=== PATIENT | male | born 1960 | race Hispanic/Latino ===

== ENCOUNTER 2021-06-03 01:01 | Emergency (ER) | payer MEDICARE ==
[~2021-06-03] VITALS: Ht 157.5 cm; Wt 49.9 kg
[2021-06-03 01:11] VITALS: BP 120/89
--- NOTE | 2021-06-03 01:19 | ER.PDOC ---
General Chief Complaint: General Complaint Stated Complaint: PEG TUBE REMOVED TRAVEL OUT OF US: No Time seen by MD: 01:02 Source: patient Exam Limitations: no limitations History of Present Illness Initial Comments This is a 60-year-old man who comes to the emergency department after he inadvertently pulled out his PEG tube. He was sent here by ambulance for to be replaced. Timing/Duration: 1 hour Severity: mild Associated Symptoms: denies symptoms Allergies: Coded Allergies: No Known Allergies (Unverified , 06/03/21) Past Medical History Medical History: CVA/TIA/stroke, GERD, high cholesterol Social History Alcohol Use: none Drug Use: none Review of Systems Constitutional: no symptoms reported EENTM: no symptoms reported Respiratory: no symptoms reported Cardiovascular: no symptoms reported Gastrointestinal: no symptoms reported Genitourinary: no symptoms reported Musculoskeletal: no symptoms reported Skin: no symptoms reported Psychiatric/Neurological: no symptoms reported Hematologic/Lymphatic: no symptoms reported Immunological/Allergic: no symptoms reported All Other Systems: Reviewed and Negative Physical Exam General Appearance: No Apparent Distress EENT: nml ENT inspection Neck: Normal Inspection Respiratory: lungs clear, normal breath sounds, no respiratory distress CVS: reg rate & rhythm, no murmur Gastrointestinal: Normal Bowel Sounds, No Organomegaly, Non Tender, Other (peg insertion site appears normal. No signs of irritation or infection) Back: Normal Inspection Extremities: Normal Inspection Neurologic/Psychiatric: No Motor/Sensory Deficits Skin: Normal Color NG Lavage Progress A #18F PEG tube placed back in the site without difficulty. Aspirated gastric contents Results/Orders Results/Orders Vital Signs Date Time Temp Pulse Resp B/P (MAP) Pulse Ox O2 Delivery O2 Flow Rate FiO2 06/03/21 01:11 98.4 77 16 120/89 (99) 93 Room Air 06/03/21 01:11 98.4 77 16 93 06/03/21 01:11 98.4 77 16 ER DEPART Departure Time of Disposition: 01:18 Disposition: [facility] Impression: Primary Impression: PEG tube malfunction Condition: Stable Patient Instructions: PEG, Home Care, Ictg-fn-Gatc Referrals: PCP,UNKNOWN (PCP) PRIMARY CARE PROVIDER Duration or Time Spent with Pa: AKIRA Anderson MD Jun 03, 2021 01:19
== END 2021-06-03 01:28 ==
LOC: ER 01:01 → EDBD 01:01 → ER 01:28
DX: K94.23 Gastrostomy malfunction (principal); K21.9 Gastro-esophageal reflux disease without esophagitis; E78.00 Pure hypercholesterolemia, unspecified; Z86.73 Personal history of transient ischemic attack (TIA), and cerebral infarction without residual deficits
CPT/HCPCS: 99285

== ENCOUNTER → 2021-06-20 | Outpatient (CLI) | payer MEDICARE ==
--- NOTE | 2021-06-20 18:44 | DIREP ---
PROCEDURE:XRAY SHOULDER MIN 2 VWS-RT COMPARISON:None. INDICATIONS:W19.XXXA FALL FINDINGS: BONES:Greater tuberosity subchondral cysts. JOINTS:Mild degenerative changes of the right glenohumeral and acromioclavicular joints. Subacromial space maintained. No evidence for dislocation. SOFT TISSUES:Normal. OTHER:Normal. CONCLUSION:No acute or significant chronic bony abnormality. Dictated by: Cindy Hopkins MD on 06/20/2021 at 06:41 PM
--- NOTE | 2021-06-20 18:49 | DIREP ---
PROCEDURE:XRAY WRIST MIN 3VW-RT COMPARISON:None. INDICATIONS:W19.XXXA FALL FINDINGS: BONES:Normal. JOINTS:Mild/moderate diffuse degenerative changes. SOFT TISSUES:Peripheral arterial calcifications. OTHER:No additional findings. CONCLUSION:No acute bony abnormality. Dictated by: Cindy Hopkins MD on 06/20/2021 at 06:46 PM
--- NOTE | 2021-06-20 18:51 | DIREP ---
PROCEDURE:XRAY FOREARM 2 VWS-RT COMPARISON:None. INDICATIONS:W19.XXXA FALL FINDINGS: BONES:Normal. JOINTS:No dislocation. Mild/moderate degenerative changes. SOFT TISSUES:Normal. OTHER:No additional findings. CONCLUSION:No acute bony abnormality. Dictated by: Cindy Hopkins MD on 06/20/2021 at 06:48 PM
== END | disposition home or self-care (01) ==
LOC: RAD 15:24
PROVIDERS: ATTEND Family Medicine
DX: R13.12 Dysphagia, oropharyngeal phase (principal); I63.9 Cerebral infarction, unspecified; W19.XXXA Unspecified fall, initial encounter; Z86.16 Personal history of COVID-19
CPT/HCPCS: 73030-RT; 73090-RT; 73110-RT